=== PATIENT | female | born 1940 | race Caucasian/White ===

== ENCOUNTER 2018-04-06 12:29 | Inpatient (IN) | payer OTHER ==
[~2018-04-06] VITALS: Ht 170.2 cm; Wt 102.1 kg
--- NOTE | ~2018-04-06 | HC ---
[facility] [place] [address] CONSULTATION Name: SREEKANTH TINAJERO Room #: 204-P ADM IN M.R.#: [id number] Admission: 04/07/18 Attend Phys: Roseanne Santos Discharge: Date of : 38 Report #: [id number] THIS REPORT FOR: //name// CC: FAM unknown Roseanne Santos DATE OF SERVICE: 04/08/2018 HISTORY OF PRESENT ILLNESS: The patient is a 77-year-old white female admitted with increased shortness of breath, was noted to be at [facility], discharged just prior to coming to [facility], was noted to have left AMA per case management notes. She had a cardiac catheterization and echo at [facility]. When she was admitted here to [facility], she was brought in by the fire department with weakness, inability to ambulate, increased shortness of breath, and concern with ID. She was seen by Cardiology, was noted to have inferolateral ST elevation consistent with an infarct apparently inferolateral. She underwent cardiac catheterization, diagnosed with eyvng-be-inuywei congestive heart failure, noted to have Takotsubo cardiomyopathy while she was at [facility]. She has generalized weakness and has been unable to ambulate the last couple of weeks. She also was diagnosed with atrial fibrillation with rapid ventricular rate. We are seeing her in rehabilitation medicine consultation. PAST MEDICAL HISTORY: Includes COPD, some questionable lung surgery, hypertension, diabetes, hypercholesterolemia, degenerative arthritis, and hard of hearing. Past medical history is also notable for schizophrenia, bipolar and depression. MEDICATIONS: Please see the full medication listing. ALLERGIES: THE PATIENT IS ALLERGIC TO PENICILLIN. SOCIAL HISTORY: She lives with her son in an apartment, no steps. She has a scooter, but does not utilize it because of the cost of recharging the battery. She does have a wheelchair and a walker. She was premorbidly able to get in and out of the wheelchair. There is a home health complex care nurse practitioner through Medicaid that comes in Mondays to . There is a prior tobacco history, but no alcohol. REVIEW OF SYSTEMS: Did not offer any current complaints of chest pain or shortness of breath, abdominal discomfort. She has concerns with her overall weakness and decreased function. PHYSICAL EXAMINATION: GENERAL: The patient is a 77-year-old white female, hard of hearing, no obvious distress. She was alert, does follow basic [address] [address] CONSULTATION Name: SREEKANTH TINAJERO Room #: 204-P [facility] IN M.R.#: [id number] Admission: 04/07/18 Attend Phys: Roseanne Santos Discharge: Date of : 38 Report #: [id number] VITAL SIGNS: Last recorded temperature is 98, pulse is 100, respirations 18, and blood pressure is 116/61. HEENT: Facies are symmetric. EXTREMITIES: Functional range of motion of the upper extremity, strength is grade 4- to 3+/5. DTRs are trace to 1. Lower extremities functional range of motion, strength is probably a grade 3+. No calf swelling. Functionally, she is needing assistance with bed mobility, max assist to bring legs to edge of bed and obtain upright positioning. ASSESSMENT: The patient is a 77-year-old white female with the following problem list: 1. Apparent inferolateral myocardial infarction. 2. Takotsubo cardiomyopathy. 3. Acute on chronic congestive heart failure. 4. Generalized weakness and debilitation. 5. Chronic obstructive pulmonary disease. 6. Hypertension. 7. Diabetes mellitus. 8. Elevated cholesterol. 9. Atrial fibrillation. 10. Hard of hearing. 11. Schizophrenia. 12. Bipolar disorder. PLAN: The patient's son tells me that they are planning on returning back home Wednesday with home healthcare assisting. We discussed the fact that the patient is needing considerable assistance with basic functional mobility skills. I recommended that the son work with the therapist to see if he feels comfortable handling her at home. If it works well with training than that could certainly be an option. Otherwise, may want to consider an acute inpatient 5 North rehabilitation stay as a backup plan. The patient is not at all keen on this and is adamant about returning home, but I nevertheless did let them know that it could be a backup option if they are interested. By: 1641 0206 Chung Navarro MD /LAZARUS
[2018-04-06 12:29] VITALS: BP 124/76
[~2018-04-06 12:29] MED LIST: ASPIRIN325; ASPIRIN325 PO; BUSPAR30 MG; BUSPAR30 MG PO; CELEBREX 200 M200 M1 PO; CIPROFLOXACIN500 M3 PO; COLACE100 MG PO; DEPAKOTE ER500 MG PO; DEPAKOTE PO; DEPAKOTE250 MG; DEPAKOTE500 MG PO; DESYREL100 MG PO; DOCUSATE SODIU100 MG PO; GLUCOPHAGE500 MG PO; GLUMETZA1000 PO; GLYCOLAX POWDER17 G1 PO; HYDROCHLOROTHIA25 M2 PO; LISINOPRIL10 MG PO; LISINOPRIL20 MG PO; LOVASTAT40 PO; LOVENOX SQ; LUNESTA2 MG PO; MIRALAX255 GM PO; NORVASC10 MG PO; OMEPRAZOLE20 M2 PO; SYNTHROID75 MCG PO; TIROSINT75 MCG PO; TOPROL XL50 MG PO; TRAZODONE 150150 M1 PO; VENTOLIN HFA 1818 GM INH; VESICARE 5 MG TA5 MG PO; ZOCOR 20 MG TAB20 M1 PO; ZOLOFT100 MG PO
[2018-04-06 13:02] LABS: HEMATOCRIT 32.1 % (37.0-47.0); HEMOGLOBIN 10.4 gm/dL (12.0-15.0); MCH 30.7 pg (26.0-34.0); MCHC 32.4 g/dL (28.0-37.0); MCV 94.9 fL (80.0-100.0); RBC 3.39 mil/uL (4.20-5.00); RDW 15.2 % (10.5-14.5); WBC 10.7 thou/uL (4.0-11.0)
[2018-04-06 13:10] LABS: CALCIUM 8.8 mg/dL (8.5-10.1); CREATININE 0.9 mg/dL (0.6-1.0); POTASSIUM 4.7 mmol/L (3.5-5.1)
[2018-04-06 13:15] LABS: ALBUMIN 2.8 g/dL (3.4-5.0); APTT 28.5 Seconds (24.5-32.8); DIRECT BILIRUBIN 0.2 mg/dL (<0.1-0.3); INR 1.1; PROTIME 11.2 Seconds (9.3-11.4); TOTAL BILIRUBIN 0.4 mg/dL (<0.1-1.0); TOTAL PROTEIN 5.6 g/dL (6.4-8.2); TROPONIN-I 0.21 ng/mL (<0.06)
[2018-04-06 13:30] LABS: BE(vivo) -9.1 mmol/L (-2 to +3); PCO2 32.3 mmHg (35.0-45.0); PO2 154.3 mmHg (80.0-100.0); pH 7.314 (7.360-7.450); sO2 98.8 % (92.0-98.0)
[2018-04-06 13:31] VITALS: BP 118/80
--- NOTE | 2018-04-06 13:56 | EKG ---
[address] [place] [address] ELECTROCARDIOGRAM REPORT Name: SREEKANTH TINAJERO Room #: REG LEENA Rivers#: [id number] Admission: 04/06/18 Attend Phys: Discharge: Date of : 36 Report #: [id number] THIS REPORT FOR: //name// [facility] ED Test Date: 2018-04-06 Test Time: 12:33:55 Pat Name: SREEKANTH TINAJERO Department: Room: Gender: F Estate Planning Paralegal: : 1940 Requested By: Gertrude Garcia Order Number: [id number] MD: Ashok Carroll Measurements Intervals [place] Rate: 144 P: [place]: QRS: 41 QRSD: 80 T: 36 QT: 277 QTc: 429 Interpretive Statements Atrial fibrillation with rapid V-rate Anterior infarct, acute (LAD) Compared to ECG 12/23/2010 09:59:09 Myocardial infarct finding now present Electronically Signed On 04-06-2018 13:56:42 SPORTING GOODS SALESPERSON by Ashok Carroll [email or web address] <ELECTRONICALLY SIGNED> By: Ashko Carroll MD 04/06/18 1356 1233 1233 Ashok Carroll MD /EMIL
[2018-04-06 14:05] LABS: ABSOLUTE NEUTROPHILS 7.9 thou/uL (1.4-8.2); METAMYELOCYTES 1 %
[2018-04-06 14:06] LABS: ANISOCYTOSIS 2+; HYPOCHROMASIA SLIGHT; PLATELET COUNT 240 thou/uL (150-400); POLYCHROMASIA SLIGHT
--- NOTE | 2018-04-06 15:18 | 2DMMODE ---
[address] [address] 2 D/M-MODE ECHOCARDIOGRAM Name: SREEKANTH TINAJERO Room #: 204-P ADM IN M.R.#: [id number] Admission: 04/06/18 Attend Phys: Joe Butler, Discharge: Date of : 36 Date of Service: 04/06/18 1517 Report #: [id number] THIS REPORT FOR: //name// APPROVED REPORT Study performed: 04/06/2018 14:14:48 EXAM: Comprehensive 2D, Doppler, and color-flow Echocardiogram Patient Location: [facility] Room #: 2 Status: stat BSA: 1.88 BP: 166/85 mmHg Other Information Study Quality: Fair Indications Dyspnea Takotsubo Left Ventricle The left ventricle is normal size. There is severe hypokinesis in the apical wall. There is normal left ventricular wall thickness. Left ventricular ejection fraction is moderate to severely decreased. LVEF is 25-30%. Right Ventricle The right ventricle is normal size. The right ventricular systolic function is normal. Atria Left atrium is dilated. Right atrium is not well visualized. Aortic Valve The aortic valve is not well visualized. Mitral Valve The mitral valve is normal in structure. Tricuspid Valve Tricuspid valve is not well visualized. Pulmonic Valve [address] [address] 2 D/M-MODE ECHOCARDIOGRAM Name: SREEKANTH TINAJERO Room #: 204-P ADM IN M.R.#: [id number] Admission: 04/06/18 Attend Phys: Joe Butler, Discharge: Date of : 38 Date of Service: 04/06/181516 Report #: [id number] Pulmonic valve is not well visualized. Great Vessels The aortic root is normal in size. The inferior vena cava is not well visualized. Pericardium Trace pericardial effusion. <Conclusion> The left ventricle is normal size. There is severe hypokinesis in the apical wall. Left ventricular ejection fraction is moderate to severely decreased. LVEF is 25-30%. The right ventricle is normal size. Left atrium is dilated. The aortic valve is not well visualized. The mitral valve is normal in structure. The aortic root is normal in size. Trace pericardial effusion. <ELECTRONICALLY SIGNED> By: Joe Butler MD, FACC 04/06/181516 16 16 Joe Butler MD, FACC /INF
--- NOTE | 2018-04-06 15:34 | NUR ---
PT WAS BROUGHT OUT TO CV HOLDING TILL CCU BED WAS READY. VSS, PT ON O2@8L SATING AT 99%, BP 103/64, HR 124 AND RR 24. TELLEZ CATHETER IN PLACE WITH CLOUDY URINE COMING OUT, L NECK IV PATENT. 20MG BOLUS OF CARDIZEM ORDERED WITH 10MG/HR DRIP TO FOLLOW. BOLUS WAS GIVEN AND DRIP STARTED. REPORT CALLED TO CCU BY BRENT BARLOW. PT AND FAMILY MEMBER TRANSFERED TO [facility] WITHOUT DIFFICULTY.
[2018-04-06 16:51] VITALS: BP 101/75
--- NOTE | 2018-04-06 17:22 | NUR ---
PT ADMITED FROM AGRONOMY RESEARCH MANAGER. ADMISSION HX AND ASSESSMENT COMPLETED WITH THE HELP FROM THE SON. PT ORIENTED TO THE ROOM AND THE CALL SYSTEM. FALL PRECAUTION IMPLEMENTED. ORDERS NOTED. ON CARDIZEM DRIP. WILL CONTINUE TO MONITOR.
[2018-04-06] MEDS ORDERED: DILTIAZEM 24HR180 M3 PO (17:38)
[2018-04-06] MEDS ORDERED: KEPPRA 500 MG500 M1 PO (17:40)
[2018-04-06] MEDS ORDERED: KLOR-CON 1010 MEQ PO (17:41)
[2018-04-06] MEDS ORDERED: ELIQUIS5 MG PO (17:42)
[2018-04-06] MEDS ORDERED: CIPRO500 MG PO (17:44)
[2018-04-06] MEDS ORDERED: LASIX 20 MG TAB20 MG PO (17:44)
[2018-04-06 20:15] VITALS: BP 109/84
[2018-04-07 00:35] VITALS: BP 98/54
[2018-04-07 04:07] VITALS: BP 130/78
[2018-04-07 04:17] LABS: POTASSIUM 3.8 mmol/L (3.5-5.1)
[2018-04-07 04:18] LABS: CALCIUM 8.3 mg/dL (8.5-10.1); CREATININE 0.8 mg/dL (0.6-1.0)
[2018-04-07 04:25] LABS: HEMATOCRIT 27.2 % (37.0-47.0); MCH 31.1 pg (26.0-34.0); MCHC 33.3 g/dL (28.0-37.0); MCV 93.5 fL (80.0-100.0); RBC 2.91 mil/uL (4.20-5.00); RDW 15.4 % (10.5-14.5); WBC 6.5 thou/uL (4.0-11.0)
--- NOTE | 2018-04-07 05:31 | NUR ---
ASSUMED PT CARE AT 1900. PT A/OX4, VITAL SIGNS STABLE, NO COMPLAINTS OF PAIN OR CHEST PAIN AT START OF SHIFT. PT COMPLAINED OF SOME SOA AT ABOUT 2100, PT ON 5L O2. RT WAS CALLED FOR A BREATHING TREATMENT WHICH SEEMED TO HELP. PT STATED THAT SHE WAS STRESSED AND HAD NOT SLEPT WELL SINCE ADMISSION HENCE THE DIFFICULTY BREATHING. DR. HAMMER WAS INFORMED AND TRAZODONE WAS ORDERED AND GIVEN (SHE NORMALLY TAKES TRAZODODNE AT HOME). pT SLEPT WELL, NO COMPLAINTS TILL ABOUT 0400. PT COMPLAINED OF SOME CHEST PAIN, NON RADIATING, AND DRESCRIBED IT AN ACHING PAIN. FULL SET OF VITALS TAKEN, VITALS STABLE, PT AT THE TIME WAS ON CARDIZEM GOING AT 5ML/HR. PT WAS STILL ON 5L O2, EKG WAS DONE,TROPONIN WAS 0.15, AFIB ON MONITOR AND EKG. NITRO WAS GIVEN AT ABOUT 0405, BP RECHECKED AT ABOUT 0415 (BP=90/530, ANOTHER NITRO WAS GIVEN AT ABOUT 0420, BP RECHECKED AT ABOUT 0431 (BP=81/46). PARTIAL RELIEVE WAS ACHIEVED. pT WAS ENCOURAGED TO TAKE SLOW DEEP BREATHS WHICH SEEMED TO ALSO HELP WITH THE PAIN. FREQUENT CHEST PAIN REASSESSMENT PERFORMED, PT STATED THAT THE PAIN WILL NOT GO AWA6Y BUT IT WAS MUCH BETTER. CARDIZEM STOOPED AT ABOUT 0500. PT RESTING COMFORTABLY AT THIS TIME. CLOSE TO NURSING STATION FOR CLOSE MONITORING. MONITORING. WILL CONTINUE TO CLOSELY MONITOR.
[2018-04-07 07:27] VITALS: BP 100/66
[2018-04-07 11:08] VITALS: BP 108/65
--- NOTE | 2018-04-07 13:50 | NUR ---
Nutrition: Consult received for poor intake. Pt admit with CP, STEMI, CHF. Son reports pt eats fine at home but not as well here as she is "Picky". He is able to assist her with meal ordering, provided menu. Stable weights. Follows carb controlled heart healthy diet at home. RD provided review of Na+ restriction per request. See education log for details. Low nutrition risk.
[2018-04-07 15:24] VITALS: BP 127/59
--- NOTE | 2018-04-07 17:34 | NUR ---
ASSESSMENT DOCUMENTED. PT ALERT AND ORIENTED. DENIED HAVING CHEST PAIN THIS SHIFT. NO RESPITORY DISTRESS NOTED. VSS. ANXIOUS. REPORT FEELING STRESSED WITH ANY LITTLE THING OF WHICH SHE THINGS IT CONTRIBUTED TO THIS HOSPITAL ADMISSION. PT/OT/SPEECH AND CASE MANGER CONSULTED. SON AT THE BEDSIDE. WILL CONTINUE TO MONITOR.
--- NOTE | 2018-04-07 18:27 | EKG ---
[address] [address] ELECTROCARDIOGRAM REPORT Name: SREEKANTH TINAJERO Room #: 204-P ADM IN M.R.#: [id number] Admission: 04/07/18 Attend Phys: Joe Butler MD, Discharge: Date of : 38 Report #: [id number] THIS REPORT FOR: //name// [facility] Test Date: 2018-04-07 Test Time: 04:14:33 Pat Name: SREEKANTH TINAJERO Department: Room: 204 P Gender: F Sales Management Intern: MAFreddy : 1940 Requested By: Ame Oliver Order Number: [id number] : Ashok Carroll Measurements Intervals [place] Rate: 98 P: 120 AL: 175 QRS: 16 QRSD: 78 T: 64 QT: 345 QTc: 441 Interpretive Statements Sinus rhythm Low voltage, extremity and precordial leads Borderline ST elevation, lateral leads Compared to ECG 04/06/2018 12:33:55 Electronically Signed On 04-07-2018 18:27:39 ARMATURE BALANCER by Ashok Carroll [email or web address] <ELECTRONICALLY SIGNED> By: Ashok Carroll MD 04/07/18 1827 0414 0414 Ashok Carroll MD /EPI
[2018-04-07 19:06] LABS: GLYCOHEMOGLOBIN (HGB A1C) 5.4 % (4.8-5.6)
[2018-04-07 20:33] VITALS: BP 95/56
[2018-04-08 04:13] LABS: HEMATOCRIT 28.7 % (37.0-47.0); HEMOGLOBIN 9.5 gm/dL (12.0-15.0); MCH 31.2 pg (26.0-34.0); MCHC 33.2 g/dL (28.0-37.0); MCV 93.9 fL (80.0-100.0); RBC 3.06 mil/uL (4.20-5.00); RDW 15.5 % (10.5-14.5); WBC 5.6 thou/uL (4.0-11.0)
[2018-04-08 04:20] LABS: CREATININE 0.8 mg/dL (0.6-1.0); POTASSIUM 3.7 mmol/L (3.5-5.1)
[2018-04-08 04:30] VITALS: BP 96/60
--- NOTE | 2018-04-08 05:34 | NUR ---
ASSUMED PT CARE AT 1900. PT A/OX4, VITAL SIGNS STABLE (SBP BETWEEN 90-100), ASSESSMENT CHARTED. NO COMPLAINTS OF CHEST PAIN. PT COMPLAINED OF GENERALIZED ABDOMINAL PAIN. PAIN MANAGED WITH PAIN MEDICATION, PT EDUCATED ON THE IMPORTANCE OF TURNS AND REPOSITIONING. PT RESTED WELL THROUGH THE NIGHT. PROGRESSING TOWARD POC. WILL CONTINUE TO MONITOR.
[2018-04-08 08:00] VITALS: BP 80/50
[2018-04-08 11:02] LABS: % SATURATION 14 % (20-39); IRON 27 ug/dL (50-170); TIBC 191 ug/dL (250-450)
[2018-04-08 11:45] VITALS: BP 98/52
--- NOTE | 2018-04-08 12:19 | NUR ---
I met with Melissa and her son for an intial evaluation, to see if Melissa met criteria for SBH. At this time she does not meet criteria for inpatient psych. Melissa is bi-polar, this disorder is currently being controlled with her medications. She is A/Ox4. She does not appear to have memory imparirment. She denies any suicidal/ homicidal ideations. She denies any thoughts of self harm. Melissa denies any depression or anxiety. Melissa did acknowledge that she has a diagnosis at this time. Melisas did state that she is afraid. We discussed what scares her. She stated that she is afraid of being alone. "When he ( pointing at her son), goes I will be alone. I reassured her that staff is here for her. I encouraged her to call for staff if she becomes afraid. She requested to see a Loss Prevention Auditor. I informed her nurse, a consult for seed buyer has been ordered.
[2018-04-08 13:38] LABS: URINE BILIRUBIN NEGATIVE (Negative); URINE BLOOD 3+ (Negative); URINE CLARITY CLEAR; URINE COLOR YELLOW; URINE GLUCOSE-RANDOM* NEGATIVE (Negative); URINE KETONES NEGATIVE (Negative); URINE LEUKOCYTES-REFLEX 3+ (Negative); URINE NITRITE-REFLEX NEGATIVE (Negative); URINE PROTEIN (DIPSTICK) TRACE (Negative); URINE UROBILINOGEN 0.2 E.U./dl (0.2-1.0)
[2018-04-08 13:47] LABS: CASTS None Seen /LPF (None Seen); SQUAMOUS 0-3 Few /LPF (0-3); URINE RBC >20 Many /HPF (0-2)
[2018-04-08 13:48] LABS: BACTERIA-REFLEX 1-9 Few /HPF (None Seen); CRYSTALS None Seen /LPF (None Seen); WBC CLUMPS Few (None Seen); YEAST-REFLEX Present (None Seen)
--- NOTE | 2018-04-08 14:11 | NUR ---
CM ASSESSMENT: CASE OPENED FOR DC PLANNING. CLINICAL INFO REVIEWED. PT ADMIT FOR CHEST PAIN, A/C HF. CATH'D 04/07 NO INTERVENTION NEEDED, FOUND SEVERE WITH PAP 70/30. PT CURRENTLY ON 5 LITER O2. MET WITH PT AND SON AT BEDSIDE. PT IS [place] BUT ABLE TO COMMUNICATE AND SON PROVIDES SOME INFO. PT AND SON LIVE IN [place]. IN HOUSE. PT AT BASELINE ABLE TO WALK WITH WALKER BUT LAST COUPLE WEEKS INCREASING WEAKNESS AND HAS USED HER ELECTRIC W/C AND SON ASSISTS WITH BATHING, TOILETING AND TRANSFERS. PT HAS MEDICAID INDUSTRIAL MACHINE SYSTEM TECHNICIAN SERVICES THRU [facility] AND VERIFIED WITH INTAKE HAS 9A TO 1230P CAREGIVER M-TH AND RN WKLY FOR MED SET UP. PT HAS PSYCH HX AND SON STATES HAS ENAMEL MACHINE OPERATOR FROM [facility]. PRIMARY CARE FROM [facility]. DISCUSSED POST ACUTE STAY AND PT REFUSES. WILL AGREE TO HOME HEALTH FROM [facility]. DISCUSSED CASE WITH DR. HAMMER AND DR. HUGGINS. HOSPITALIST IS NOW PRIMARY. PER DR. HUGGINS, 5S REFERRAL. 5S NURSE STORE LOSS PREVENTION MANAGER HERE NOW TO SPEAK WITH PT AND HER SONS. SON TONYA IS POA, OTHER SON LIVES WITH PT AND IS CAREGIVER. CM AVAILABLE TO ASSIST WITH DC NEEDS PRN.
--- NOTE | 2018-04-08 15:02 | EKG ---
[address] [address] ELECTROCARDIOGRAM REPORT Name: GEOKALASREEKANTH Room #: 204-P ADM IN M.R.#: [id number] Admission: 04/07/18 Attend Phys: Roseanne Santos Discharge: Date of : 38 Report #: [id number] THIS REPORT FOR: //name// [facility] ED Test Date: 2018-04-06 Test Time: 13:44:19 Pat Name: SREEKANTH TINAJERO Department: Room: 204 P Gender: F Casino Floorperson: TSTORUSMAN : 1940 Requested By: Gertrude Garcia Order Number: [id number] MD: Ashok Carroll Measurements Intervals [place] Rate: 116 P: MN: QRS: 20 QRSD: 85 T: 56 QT: 318 QTc: 442 Interpretive Statements Atrial fibrillation Ventricular premature complex Low voltage, extremity and precordial leads Borderline ST elevation, anterolateral leads Compared to ECG 04/06/2018 12:33:55 Ventricular premature complex(es) now present Low QRS voltage now present ST (T wave) deviation now present Myocardial infarct finding no longer present Electronically Signed On 04-08-2018 15:02:31 CODING DIRECTOR by Ashok Carroll [email or web address] <ELECTRONICALLY SIGNED> By: Ashok Carroll MD 04/08/18 1502 1344 1344 Ashok Carroll MD /EPI
--- NOTE | 2018-04-08 15:04 | NUR ---
ASSESSMENT DOCUMENTED. AFEBRILE. HYPOTENSIVE. ASYMPTOMATIC. PT RESTING IN BED WITH CALL LIGHT IN REACH. WILL CONTINUE TO MONITOR.
--- NOTE | 2018-04-08 15:07 | EKG ---
[address] [address] ELECTROCARDIOGRAM REPORT Name: SREEAKNTH TINAJERO Room #: 204-P ADM IN M.R.#: [id number] Admission: 04/07/18 Attend Phys: Roseanne Santos Discharge: Date of : 38 Report #: [id number] THIS REPORT FOR: //name// [facility] Test Date: 2018-04-07 Test Time: 04:18:20 Pat Name: SREEKANTH TINAJERO Department: Room: 204 P Gender: F Title Processor: CHARLES : 1940 Requested By: Joe Butler Order Number: [id number] MD: Ashok Carroll Measurements Intervals [place] Rate: 101 P: RI: QRS: 21 QRSD: 85 T: 40 QT: 358 QTc: 465 Interpretive Statements Atrial fibrillation Ventricular premature complex Low voltage, extremity and precordial leads Compared to ECG 04/06/2018 12:33:55 Ventricular premature complex(es) now present Low QRS voltage now present Myocardial infarct finding no longer present Electronically Signed On 04-08-2018 15:07:08 TRAVELIFT OPERATOR by Ashok Carroll [email or web address] <ELECTRONICALLY SIGNED> By: Ashok Carroll MD 04/08/18 1507 0418 0418 Ashok Carroll MD /EPI
[2018-04-08 15:12] VITALS: BP 116/61
--- NOTE | 2018-04-08 15:22 | EKG ---
[address] [address] ELECTROCARDIOGRAM REPORT Name: GEOKALASREEKANTH Room #: 204-P ADM IN M.R.#: [id number] Admission: 04/07/18 Attend Phys: Roseanne Santos Discharge: Date of : 38 Report #: [id number] THIS REPORT FOR: //name// Test Date: 2018-04-08 Test Time: 08:24:51 Pat Name: SREEKANTH TINAJERO Department: Room: 204 P Gender: F Bicycle Designer: FLAQUITA : 1940 Requested By: Joe Butler Order Number: [id number] MD: Ashok Carroll Measurements Intervals [place] Rate: 103 P: LA: QRS: 44 QRSD: 81 T: 79 QT: 316 QTc: 414 Interpretive Statements Atrial fibrillation Low voltage, extremity and precordial leads Nonspecific T abnormalities, lateral leads Compared to ECG 04/07/2018 04:14:33 T-wave abnormality now present Sinus rhythm no longer present ST (T wave) deviation no longer present Electronically Signed On 04-08-2018 15:22:01 COMPLIANCE MANAGER by Ashok Carroll [email or web address] <ELECTRONICALLY SIGNED> By: Ashok Carroll MD 04/08/18 1522 3 3 Ashok Carroll MD /EPI
[2018-04-08 15:30] VITALS: BP 116/61
--- NOTE | 2018-04-08 16:26 | NUR ---
FAXED REFERRAL TO [facility] AND THEY CANNOT ACCEPT PT. DUE TO PCP NOT SIGNING ORDERS AFTER LAST ADMISSION. DCP TO FOLLOW.
[2018-04-08 19:54] VITALS: BP 99/59
[2018-04-09 05:23] LABS: CREATININE 0.7 mg/dL (0.6-1.0); POTASSIUM 3.6 mmol/L (3.5-5.1)
[2018-04-09 05:57] VITALS: BP 93/57
[2018-04-09 07:20] VITALS: BP 99/74
--- NOTE | 2018-04-09 07:44 | NUR ---
ASSUME CARE 1900. INTERMITTENT GENERALIZE PAIN. POOR ACTIVITY TOLERANCE. PT/OT EVAL/TX. ASSESSMENT CHARTED. PROGRESSING WELL TOWARDS PLAN OF CARE. PLAN IS TO DISCUSS WITH FAMILY ABOUT REHAB OPTIONS BEFORE DISCHARGING HOME. PT/FAMILY NEED MORE EDUCATION ON THE IMPORTANCE OF REHAB. WILL CONTINUE TO MONITOR AND FOLLOW WITH POC
[2018-04-09] MEDS ORDERED: CEFUROXIME250 MG PO (08:37)
[2018-04-09] MEDS ORDERED: DEMADEX20 MG PO (08:38)
[2018-04-09 10:44] VITALS: BP 99/74
[2018-04-09 11:28] VITALS: BP 91/51
--- NOTE | 2018-04-09 13:54 | HC ---
[facility] [place] [address] CONSULTATION Name: SREEKANTH TINAJERO Room #: 204-P ADM IN M.R.#: [id number] Admission: 04/07/18 Attend Phys: Roseanne Santos Discharge: Date of : 38 Report #: [id number] THIS REPORT FOR: //name// CC: FAM unknown Roseanne Santos REFERRAL PHYSICIAN: Dr. Butler. REASON FOR REFERRAL: COPD and dyspnea. HISTORY OF PRESENT ILLNESS: The patient is a 77-year-old white female who was brought to the Emergency Room with complaints of chest pain and dyspnea. A pulmonary consultation was requested. The patient normally gets her care at [place], [place] at the [facility]. She was found to have abnormal EKG. At one point, the patient was felt to have STEMI. Subsequently, cardiac catheterization was not performed. She is currently being medically treated. Chest x-ray on admission revealed mild bilateral pleural effusion, questionable right lower lobe infiltrate. She is a poor historian. Family is also not able to provide adequate history. Currently, she states that she has not walked for the last 4 weeks. Otherwise, denies any dyspnea, chest pain. PAST MEDICAL HISTORY: Notable for history of tobacco use, COPD, there is a remote history of possible lung surgery, diabetes mellitus, hypertension, atrial fibrillation, hypocholesterolemia, hearing impairment. ALLERGIES: TO PENICILLIN, REACTIONS NOT SPECIFIED. HOME MEDICATIONS: List reviewed. This includes Lasix, levothyroxine, lisinopril, lovastatin, melatonin, metformin, metoprolol, diltiazem, Keppra, potassium supplements, Eliquis, recent course of Cipro, lovastatin, Synthroid, Glucophage, aspirin, Toprol-XL, Desyrel, hydrochlorothiazide, Zestril, omeprazole, Celebrex, Ventolin HFA p.r.n. FAMILY HISTORY: Noncontributory. SOCIAL HISTORY: The patient lives with her son, has a history of tobacco use. No current alcohol use. REVIEW OF SYSTEMS: As mentioned above, she is not a good historian. Otherwise, 10-point system review negative. [facility] [address] [place] [address] CONSULTATION Name: SREEKANTH TINAJERO Room #: 204-P [facility] IN M.R.#: [id number] Admission: 04/07/18 Attend Phys: Roseanne Santos Discharge: Date of : 38 Report #: [id number] PHYSICAL EXAMINATION: GENERAL: She is awake, alert, in no apparent distress. VITAL SIGNS: Temperature is 98 degrees Fahrenheit, pulse is 100, respiratory rate is 20, blood pressure 98/52 mmHg, saturation is 96%. HEENT: Normocephalic, atraumatic. NECK: Supple, without any lymphadenopathy or thyromegaly. CHEST: Breath sounds are fair due to poor effort. Decreased breath sounds at the bases. No obvious rales or wheezes. CARDIOVASCULAR: Irregularly irregular. No obvious murmurs or gallop. Pulses are 2+/4+ bilaterally. ABDOMEN: Soft, nontender, no organomegaly or masses felt. GENITOURINARY: Deferred. RECTAL: Deferred. EXTREMITIES: There is no edema, cyanosis or clubbing. MUSCULOSKELETAL: Mild muscle atrophy is noted. LABORATORY DATA: Chest x-ray as mentioned above. EKG on admission revealed atrial fibrillation with rapid ventricular response, anterior infarct pattern. Echocardiogram showed ejection fraction of 25%, right ventricle is normal. Severe hypokinesis involving the apical wall. Otherwise, no other significant findings. Followup EKG shows resolution of the acute changes. Electrolytes are normal, creatinine is normal. WBC 5600, hemoglobin is 9.5. Troponin 0.21 on admission. Arterial blood gas revealed pH 7.31, pCO2 32, pO2 of 154 on 5 liters of O2. IMPRESSION: 1. Acute on chronic hypoxic respiratory failure in this 77-year-old white female. Chest x-rays suggest bilateral pleural effusion. She has a history of chronic obstructive pulmonary disease. Echocardiogram shows ejection fraction of 25%. Suspect hypoxia related to acute on chronic systolic heart failure, and underlying chronic obstructive pulmonary disease. 2. History of chronic obstructive pulmonary disease, severity undefined, past history of tobacco use. The patient is without exacerbation at this time. 3. Probable bilateral pleural effusion due to heart failure. Follow up chest x-ray. 4. Takotsubo cardiomyopathy with ejection fraction 25% based on echocardiogram performed at [facility]. 5. Acute on chronic heart failure, currently on diuresis. 6. Coronary artery disease, mild 3-vessel disease. 7. Atrial fibrillation with rapid ventricular response. 8. History of schizophrenia/bipolar, depression disorder. 9. History of seizure disorder. 10. Hypothyroidism. 11. Anemia. RECOMMENDATION: Agree with diuresis. We will continue bronchodilators. I do [facility] [address] [place] [address] CONSULTATION Name: SREEKANTH TINAJERO Room #: 204-P [facility] IN M.R.#: [id number] Admission: 04/07/18 Attend Phys: Roseanne Santos Discharge: Date of : 38 Report #: [id number] not think corticosteroids is needed at this time. Wean O2 for saturation 90%. Pneumonia is felt to be less likely. Okay from my perspective to discontinue antibiotics if chest x-ray clears and the patient remains afebrile. DVT and GI prophylaxis as indicated. Thank you for this consultation. <ELECTRONICALLY SIGNED> By: Benjamin Wynn MD 04/09/18 1354 1421 0618 Benjamin Wynn MD /nt
--- NOTE | 2018-04-09 14:44 | NUR ---
PT DISCHARGE - FAXED DC ORDER AND DISCHARGE SUMMARY TO [phone] MILENA DRISCOLL. ATTEMPTED CONTACT WITH MILENA DRISCOLL PER CM NOTE, CALLED AT 0800, 0900, 1200, AND 1500 WITH NO ANSWER FROM MILENA DRISCOLL [phone]. HM O2 SETUP PER DR VILLATORO'S VERBAL ORDER.
--- NOTE | 2018-04-09 14:49 | NUR ---
PATIENT AND SON CONTACTED BY OCCUPATIONAL THERAPIST THIS AFTERNOON TO DISCUSS DISCHARGE NEEDS. PATIENT HAD DIFFICULTY SITTING AT [facility] FOR MORE THAN A MINUTE YESTERDAY. SON WAS PRESENT THEN. OT RECOMMENDS THAT PATIENT HAVE SKILLED THERAPY POST ACUTE TO IMPROVE HER STRENGTH AND ENDURANCE PRIOR TO RETURN TO HOME. PATIENT'S SON SAYS THAT HIS BROTHER IS COMING SOON AND THEY WILL BE ABLE TO LIFT HER INTO THE CHAIR AND GET HER INTO THE HOUSE WHERE SHE WILL HAVE HOME HEALTH THERAPIES. SON STATES THAT THEY WILL NOT DO A SKILLED THERAPY STAY.
[2018-04-09 20:52] VITALS: BP 122/39
--- NOTE | 2018-04-10 04:32 | NUR ---
PT WAS TO BE DISCHARGED YESTERDAY, ALL DICHARGE ORDERS HAD BEEN WRITTEN. (FROM PREVIOUS SHIFT- NURSE HELPED PT AT SOME TO THE CAR, BUT PT WAS WEEK, COULD NOT TURN AND PIVOT TO SIT IN THE CAR. NURSE THEN MADE THE JUDGEMENT NOT SEND PT HOME SHE WAS UNSTABLE, ATTENDING PHYSICIAN WAS NOTIFIED.) PT ALERT AND ORIENTED. NO C/O PAIN. SOB,OR CHEST PAIN. IV TEAM CALLED TO START IV LINE. WILLM CONTINUE TO FOLLOW POC.
[2018-04-10 05:32] VITALS: BP 102/37
[2018-04-10 07:21] VITALS: BP 101/50
[2018-04-10 12:04] VITALS: BP 79/63
--- NOTE | 2018-04-10 15:21 | NUR ---
PT IS ALERT AND ORIENTED X4. TURN Q2 HOURS. HARD OF HEARING. O2 AT 2LITERS NASAL CANULA. LUNGS ARE CLEAR TO DIMINISHED. A FIB ON THE RAILWAYS ASSISTANT. EATING A CARB CONTROL DIET. COCCYX BARRIER CREAM APPLYIED AND FOAM DRESSING TO COCCYX. REDENED AREA NOTED. TELLEZ CATH TO DD WITH CLEAR YELLOW URINE PRESENT. TYENOL GIVEN FOR CHEST DISCOMFORT AND NITRO SUBLINGUAL GIVEN. PT RESTING NOW AND IS COMFORTABLE DENIES DISCOMFORT AFTER MEDICATION. WILL CONTINUE TO ASESS AND MONITOR PER NURSING
[2018-04-10 17:11] VITALS: BP 124/75
[2018-04-10 21:07] VITALS: BP 110/65
[2018-04-11 04:41] VITALS: BP 103/59
--- NOTE | 2018-04-11 05:48 | NUR ---
ASSESSMENT DOCUMENTED. COMPLAINT OF PAIN ON THE ABDOMEN. PAIN MEDICATION GIVEN BUT NO RELIEF. COMPLAINT OF HEARBURN. 02:33>CALLED [facility] WITH ORDERS GIVEN AND CARRIED OUT. 03:54>STILL WITH HEART BURN. CALLED BACK [facility] AND ORDERES GIVEN AND CARRIED OUT. PATIENT ABLE TO SLEEP AFTER GIVING PEPCID. FF UP POC.
[2018-04-11 08:00] VITALS: BP 88/42
--- NOTE | 2018-04-11 09:31 | NUR ---
PT STATUS - SPOKE WITH PT THIS AM AND SHE IS VERY WILLING TO WORK WITH PT/OT AT THIS POINT. CM AT BEDSIDE AND INSTRUCTED SAME. WILL MONITOR.
--- NOTE | 2018-04-11 10:16 | NUR ---
FAXED REFERRAL TO [facility] SPOKE WITH PADMA IN ADM AND SHE RECEIVED REFERRAL AND WILL REVIEW THEY WILL HAVE A BED AVAILABLE TODAY. ANTICIPATE DC TODAY FAXED REFERRAL TO [facility] SPOKE WITH TIA IN ADM. SHE RECEIVED REFERRAL AND WILL REVIEW. THEY MIGHT HAVE A BED AVAILABLE TODAY. DCP TO FOLLOW,
--- NOTE | 2018-04-11 11:12 | NUR ---
5 N CONSULT RECEIVED AND DR. TORRES ASSESSED PATIENT ON 04/08/18. SEE DR. TORRES'S CONSULT FOR DETAILS. NUT FEEDER MEETS WITH PATIENT AND PATIENT'S SON THIS A.M. PATIENT IS VERY HARD OF HEARING AND DEFERS QUESTIONS/CONVERSATION TO SON. DISCUSSED DIFFERENCES BETWEEN ACUTE INPATIENT REHAB UNIT AND SNF WITH PATIENT'S SON. PROVIDED AN ORIENTATION BROCHURE TO SON. SON INDICATES PATIENT DESIRES TO DISCHARGE TO A FPC FACILITY THAT IS CLOSER TO HOME. DR. HUGGINS AND DR. TORRES ALSO IN AGREEMENT THAT SNF IS LIKELY THE OPTIMAL DISCHARGE DISPOSITION. THANK YOU FOR THIS REFERRAL.
--- NOTE | 2018-04-11 11:54 | NUR ---
FAILED DC TO [facility] THIS WEEKEND. RECOMMENDATION HAS BEEN POST ACUTE REHAB AND AFTER TALKING WITH PT AND BOTH SONS, JAVAN HERE AT BEDSIDE AND TONYA BY PHONE, ALL AGREEABLE TO POST ACUTE STAY. DISCUSSED WITH 5N AND DR. TORRES FEELS MORE APPROPRIATE FOR SNF. PT AND SONS CHOOSE [facility] OR [facility] AND REFERRALS TO EACH PER DC CARRIAGE FEEDER. [facility] ACCEPTS AND DID ON SITE EVAL. PT AGREEABLE, SONS TOO. DC CARRIAGE FEEDER COMPLETED DISCHARGE AND AWAITING TRANSPORTATION TIME PER [facility].
[2018-04-11 12:00] VITALS: BP 99/58
--- NOTE | 2018-04-11 13:08 | NUR ---
PT'S FAMILY STATES O2 TANK THAT WAS SET UP ON 04/08 IS MISSING. HAD PT ON 04/08 AND INSTRUCTED FAMILY THAT TANK WAS THEIRS AND TO TAKE HM. JAVAN, SON, CONTACTED BROTHER AND BROTHER STATES HE DID NOT TAKE. CALLED RADIOLOGY, LOOKED ON UNIT [facility]. SOCIAL STATES THAT [facility] WILL SUPPLY ANOTHER UPON DC FROM REHAB. PT TO REHAB TODAY.
--- NOTE | 2018-04-11 14:36 | NUR ---
PT. DISCHARGING TODAY TO [facility]. FAXED DC ORDERS/SUMMARY TO FACILITY AND SPOKE WITH CHON IN ADM. SHE RECEIVED ORDERS AND ARRANGED TRANSPORT VIA [facility] AT 1500 TODAY. NOTIFIED SON (TONYA) OF DISCHARGE AND TIME OF TRANSPORT. UNIT NOTIFIED AND CHART COPY PER [place]. RN TO CALL REPORT TO [phone].
--- NOTE | 2018-04-13 13:42 | H ---
[facility] [address] HISTORY AND PHYSICAL Name: SREEKANTH TINAJERO Room #: 204-P [facility] IN M.R.#: [id number] Admission: 04/07/18 Attend Phys: Roseanne Santos Discharge: 04/11/18 Date of : 36 Report #: [id number] THIS REPORT FOR: //name// CC: FAM unknown Joe Butler DATE OF SERVICE: 04/06/2018 HISTORY OF PRESENT ILLNESS: The patient is a 77-year-old female I am asked to see here in the Emergency Room. Came in with acute shortness of breath and chest discomfort. She apparently was discharged from [facility] yesterday. Apparently, they wanted to keep her, but she was able to talk to them and they discharged. She lives with her son in an assisted living facility. He places out her medicines and the son and the nurse gives the medicines. It looks like she had a cardiac catheterization and echo, we are trying to obtain the stat records. It looks like there is inferolateral ST elevation here. Consistent with an infarct. This does not look like the EKG that we had back in 2010. Again, I have not received these records. I have discharge medications. There apparently had to be some atrial fibrillation here. She is in AFib with a rapid ventricular response. She was sent home on Eliquis, but the son is confident there has been no Eliquis given since yesterday morning, so this is now 2:00 p.m., so that would be at least 30 hours since her last Eliquis dose. She is on Cipro for urinary tract. Her troponin was 4 there, I was able to get that report. CURRENT MEDICATIONS: Lasix 20, levothyroxine, lisinopril 2.5, lovastatin 40, melatonin, metformin 500, metoprolol 50, omeprazole, potassium and Flomax. PAST MEDICAL HISTORY: Positive for COPD, some questionable lung surgery, hypertension, diabetes, hypercholesterolemia and now AFib, DJD and she is extremely hard of hearing. ALLERGIES: PENICILLIN. SOCIAL HISTORY: She lives with her son. There are 2 sons in assisted living facility. Prior tobacco, no alcohol. FAMILY HISTORY: Son does not believe there is any family history of premature coronary artery disease. LABORATORY WORK: Creatinine 0.9, potassium 4.7, total protein 5.6, glucose 256. Troponin 0.21. BNP is 28,954. INR is 1.1. H and H are 10.4 and 32, white count is 10.7, platelets 118. Chest x-ray, blunting of the right costophrenic angle, small effusion, some mild cephalization. PHYSICAL EXAMINATION: [facility] [address] [place] [address] HISTORY AND PHYSICAL Name: SREEKANTH TINAJERO Room #: 204-P [facility] IN M.R.#: [id number] Admission: 04/07/18 Attend Phys: Roseanne Santos Discharge: 04/11/18 Date of : 36 Report #: [id number] VITAL SIGNS: I have given 5 of IV Lopressor, blood pressure 124/70. HEENT: Eyes: No xanthomas, some arcus senilis. Pharynx is clear. NECK: Shows preserved upstrokes without JVD or bruits. LUNGS: Diminished in the bases. CARDIOVASCULAR: Irregularly irregular, tachycardic, S1, S2. Systolic murmur. ABDOMEN: Soft, slightly protuberant, nontender. EXTREMITIES: Reveal trace of edema. Distal pulses diminished. NEUROLOGIC: Nonfocal. SKIN: Warm and dry without xanthoma or ulcer. MUSCULOSKELETAL: Generalized arthritic changes. ASSESSMENT: 1. Acute stuttering, apparent inferolateral myocardial infarction. 2. Atrial fibrillation with rapid ventricular response. 3. Chronic obstructive pulmonary disease with hypoxemia. 4. Hypertension. 5. Hypercholesterolemia. 6. Diabetes. RECOMMENDATIONS AND PLAN: We will proceed emergently in catheterization lab. I am still taking stat records here, but this looks even on repeat EKG like there is still an infarct pattern. Certainly going to be somewhat conservative and intervene only if necessary. It appears that we are 30 hours post oral anticoagulant. I have discussed the options with the patient and her son. They do elect to proceed. There is certainly risk either way. Further recommendations after possible intervention. <ELECTRONICALLY SIGNED> By: Joe Butler MD, FACC 04/13/18 1342 1353 1425 Joe Butler MD, FACC /nt
== END 2018-04-11 15:55 | DRG 280 ==
LOC: ER 12:29 → 2N 14:02
PROVIDERS: Emergency Medicine; Internal Medicine Cardiovascular Disease; Nurse Practitioner Adult Health; ADMIT Hospitalist
DX: I21.19 ST elevation (STEMI) myocardial infarction involving other coronary artery of inferior wall (principal); J96.21 Acute and chronic respiratory failure with hypoxia; I50.23 Acute on chronic systolic (congestive) heart failure; N39.0 Urinary tract infection, site not specified; E11.9 Type 2 diabetes mellitus without complications; E78.00 Pure hypercholesterolemia, unspecified; I11.0 Hypertensive heart disease with heart failure; F31.9 Bipolar disorder, unspecified; G40.909 Epilepsy, unspecified, not intractable, without status epilepticus; E03.9 Hypothyroidism, unspecified; I95.9 Hypotension, unspecified; D64.9 Anemia, unspecified; M19.90 Unspecified osteoarthritis, unspecified site; F41.9 Anxiety disorder, unspecified; I25.10 Atherosclerotic heart disease of native coronary artery without angina pectoris; F20.9 Schizophrenia, unspecified; H91.90 Unspecified hearing loss, unspecified ear; J44.9 Chronic obstructive pulmonary disease, unspecified; I48.91 Unspecified atrial fibrillation; Z79.82 Long term (current) use of aspirin; Z79.84 Long term (current) use of oral hypoglycemic drugs; Z79.899 Other long term (current) drug therapy; Z88.0 Allergy status to penicillin; Z87.891 Personal history of nicotine dependence; Z82.49 Family history of ischemic heart disease and other diseases of the circulatory system
CPT/HCPCS: 10081

== ENCOUNTER 2018-05-04 13:43 | Emergency (ER) | payer OTHER ==
[~2018-05-04] VITALS: Ht 160 cm; Wt 79.4 kg
[~2018-05-04 13:43] MED LIST changes: +CEFUROXIME250 MG PO; +CIPRO500 MG PO; +DEMADEX20 MG PO; +DILTIAZEM 24HR180 M3 PO; +ELIQUIS5 MG PO; +KEPPRA 500 MG500 M1 PO; +KLOR-CON 1010 MEQ PO; +LASIX 20 MG TAB20 MG PO
[2018-05-04 13:57] LABS: ABSOLUTE NEUTROPHILS 4.1 thou/uL (1.4-8.2); BASOPHILS 0.4 % (0.0-2.0); EOSINOPHILS 0.8 % (0.0-3.0); HEMATOCRIT 35.8 % (37.0-47.0); HEMOGLOBIN 11.8 gm/dL (12.0-15.0); LYMPHOCYTES 30.3 % (24.0-44.0); MCH 30.8 pg (26.0-34.0); MCHC 32.9 g/dL (28.0-37.0); MCV 93.7 fL (80.0-100.0); MONOCYTES 7.9 % (1.0-8.0); PLATELET COUNT 146 thou/uL (150-400); POLYS 60.6 % (36.0-66.0); RBC 3.82 mil/uL (4.20-5.00); WBC 6.8 thou/uL (4.0-11.0)
[2018-05-04 14:19] LABS: ANION GAP 6 mmol/L (7-16); BUN 12 mg/dL (7-18); CALCIUM 8.9 mg/dL (8.5-10.1); CHLORIDE 101 mmol/L (98-107); CO2 31 mmol/L (21-32); CREATININE 0.9 mg/dL (0.6-1.0); GLUCOSE 113 mg/dL (74-106); POTASSIUM 4.8 mmol/L (3.5-5.1); SODIUM 138 mmol/L (136-145)
[2018-05-04 14:27] LABS: ALBUMIN 2.8 g/dL (3.4-5.0); SGOT 22 U/L (15-37); SGPT 7 U/L (30-65); TOTAL BILIRUBIN 0.6 mg/dL (<0.1-1.0); TOTAL PROTEIN 5.6 g/dL (6.4-8.2); TROPONIN-I <0.06 ng/mL (<0.06)
[2018-05-04 14:34] LABS: URINE BILIRUBIN NEGATIVE (Negative); URINE BLOOD 1+ (Negative); URINE CLARITY SLIGHTLY CLOUDY; URINE COLOR YELLOW; URINE GLUCOSE-RANDOM* NEGATIVE (Negative); URINE KETONES 1+ (Negative); URINE PROTEIN (DIPSTICK) NEGATIVE (Negative); URINE SPECIFIC GRAVITY 1.015 (1.005-1.035)
[2018-05-04 14:35] LABS: URINE LEUKOCYTES-REFLEX 3+ (Negative); URINE NITRITE-REFLEX NEGATIVE (Negative); URINE UROBILINOGEN 0.2 E.U./dl (0.2-1.0)
[2018-05-04 14:43] LABS: CASTS None Seen /LPF (None Seen); CRYSTALS None Seen /LPF (None Seen); SQUAMOUS 0-3 Few /LPF (0-3); URINE RBC 0-2 Rare /HPF (0-2); URINE WBC-REFLEX >25 Many /HPF (0-5); YEAST-REFLEX Present (None Seen)
[2018-05-04 14:44] LABS: BACTERIA-REFLEX 1-9 Few /HPF (None Seen)
--- NOTE | 2018-05-04 16:34 | EKG ---
[place] [address] [employer] [employer] [place] [address] ELECTROCARDIOGRAM REPORT Name: SREEKANTH TINAJERO Room #: REG Silvestre#: [id number] Admission: 05/04/18 Attend Phys: Discharge: Date of : 36 Report #: [id number] THIS REPORT FOR: //name// [facility] ED Test Date: 2018-05-04 Test Time: 13:54:19 Pat Name: SREEKANTH TINAJERO Department: Room: Gender: F Conservation Policy Analyst: TRANG : 1940 Requested By: Nadira Parisi Order Number: [id number] MD: Ashok Carroll Measurements Intervals [place] Rate: 100 P: [place]: QRS: 27 QRSD: 76 T: 207 QT: 409 QTc: 528 Interpretive Statements Atrial fibrillation Low voltage, extremity and precordial leads Compared to ECG 04/08/2018 08:24:51 Possible ischemia now present T-wave abnormality still present Electronically Signed On 05-04-2018 16:34:17 AUTOMOTIVE SPECIALTY TECHNICIAN by Ashok Carroll [email or web address] <ELECTRONICALLY SIGNED> By: Ashok Carroll MD 05/04/18 1634 1354 1354 Ashok Carroll MD /EMIL
[2018-05-04] MEDS ORDERED: KEFLEX500 M1 PO (16:50)
[2018-05-04 17:14] VITALS: BP 126/67
== END 2018-05-04 17:25 | disposition home or self-care (01) ==
LOC: ER 13:43
PROVIDERS: Student in an Organized Health Care Education/Training Program
DX: N39.0 Urinary tract infection, site not specified (principal); E11.9 Type 2 diabetes mellitus without complications; I11.0 Hypertensive heart disease with heart failure; I50.9 Heart failure, unspecified; E78.5 Hyperlipidemia, unspecified; Z87.891 Personal history of nicotine dependence; Z88.0 Allergy status to penicillin